=== PATIENT | female | born 1960 | race Caucasian/White ===

== ENCOUNTER 2017-08-05 19:31 | Inpatient (IN) | payer MEDICAID ==
[~2017-08-05] VITALS: Ht 157.5 cm; Wt 68.6 kg
[~2017-08-05 19:31] MED LIST: VIBERZI PO
[2017-08-05 19:33] VITALS: BP 116/73
--- NOTE | 2017-08-05 20:29 | Emergency Room Report ---
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 altered mental status x 24 days. active hep C, urinated x 1 for 24 hours, having abnormal vaginal? 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 N Clinical Suspician of Infection? N Mental Status: 2 - Mildly Altered Sepsis Risk:Low Sepsis Risk Have you (or family members/close friends) recently traveled outside the [place]? N If Yes, where/when: Have you had exposure to infectious disease within the past month? N TB? Other? Specify: Source patient, RN notes reviewed, family, EMS, old records Exam Limitations clinical condition Comment pt over the last 3 days with dec and change in mental status with no fever or trauma and does use etoh last drank yesterday and has copd and occ pain meds from pcp- - has hep c - no blood thinners Cardiac Chest Pain Chest pain indicative of cardiac No Timing/Duration this evening Severity moderate ALLERGIES Coded Allergies: MDX - Lisinopril (Lisinopril) (Severe, THROAT SWELLING 07/29/10) Converted from Ingredient Allergy: Lisinopril History Medical History General Angina: No NV: Yes Hypertension? No Hyperlipidemia? No COPD? Yes Asthma? No CVA? No Seizures? No Diabetes? No GB Disease: No MRSA? No TB? No Cancer? 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 Respiratory cough, shortness of breath, denies wheezing Cardiovascular denies chest pain, denies palpitations, denies syncope Gastrointestinal denies abdominal pain, denies diarrhea, denies vomiting Genitourinary denies: dysuria, frequency, hesitancy. Musculoskeletal denies back pain, denies joint pain, denies joint swelling, denies neck pain Skin denies rash Psychiatric/Neurological see HPI, denies headache, denies seizure, other Physical Exam Vital Signs Vital Signs Date Time Temp Pulse Resp B/P Pulse O2 O2 Flow FiO2 Ox Delivery Rate 08/06 0011 95 20 120/78 91 3 08/05 2340 99.9 95 19 122/75 90 3 08/05 2340 95 20 122/75 90 08/05 2226 40 08/05 2148 99.9 87 16 167/105 91 2 08/05 2128 87 16 167/105 91 2 08/05 1933 98.9 94 12 116/73 78 - WBC >12,000 or <4,000 or 10% bands? 2 or more SIRS Criteria Met? B/P:122/75 MAP:87 Creatinine >2.0? UA output<0.5ml/kg/hr for 2 hrs? Platelet count >100,000? Lactate >2.0mmol/1? INR >1.2 or PTT > than 60 sec? Evidence of Organ Dysfunction? Provider documented clinical suspician of infection? N Sepsis Criteria Count: 1 Sepsis Risk: Low Sepsis Risk General Appearance no apparent distress Eye Exam - bilateral eye PERRL, bilateral eye EOMI Comment no def icterus Ear, Nose, Throat normal ENT inspection, dry mm Neck supple Respiratory Status No: respiratory distress. Lung Sounds bilateral: decreased breath sounds. Cardiovascular regular rate/rhythm, systolic murmur Peripheral Pulses Pulses normal No Gastrointestinal soft Extremities normal inspection Strength 4 Upper Ext (L), 4 Upper Ext (R), 4 Lower Ext (L), 4 Lower Ext (R) Neurologic obtunded but no focal def and no posturing Glascow Coma Scale Glascow Coma Scale Response Value EYE response: 4 Spontaneously 4 MOTOR response: 6 OBEYS 6 VERBAL response: 4 Disoriented & Converses 4 Total 14 Reflexes Reflexes normal No Mental status normal mood/affect Skin intact Medical Decision Making LABS/Meds/Orders Pt receiving controlled substance in ED? No Results/Orders Laboratory Tests 08/06/17 0015: ABG pH 7.22 *L, ABG pCO2 (Temp Corrct 69.3 H, ABG pO2 (Temp Correct 58.9 L, ABG HCO3 27.9 H, ABG Total CO2 30.0 H, ABG O2 Sat (Calculated) 88.4 L, ABG Base Excess 0.2, Vincent Test PATIENT UNABLE 08/05/170: ABG pH 7.20 *L, ABG pCO2 (Temp Corrct 71.2 H, ABG pO2 (Temp Correct 60.5 L, ABG HCO3 27.0 H, ABG Total CO2 29.1 H, ABG O2 Sat (Calculated) 88.7 L, ABG Base Excess -1.2, Vincent Test PATIENT UNABLE 08/05/170: Opiates Screen POSITIVE H, Urine Methadone Screen NEGATIVE, Barbiturates NEGATIVE, Phencyclidine Screen NEGATIVE, Amphetamines Screen NEGATIVE, Benzodiazepines Screen NEGATIVE, Cocaine Screen NEGATIVE, Marijuana (THC) Screen NEGATIVE, Urine Color RITESH, Urine Appearance CLEAR, Urine pH 6.0, Ur Specific [place] 1.020, Urine Protein NEGATIVE, Urine Ketones NEGATIVE, Urine Blood NEGATIVE, Urine Nitrate NEGATIVE, Urine Bilirubin NEGATIVE, Urine Urobilinogen 0.2, Ur Leukocyte Esterase NEGATIVE, Urine RBC NONE, Urine WBC NONE, Ur Squamous Epith Cells NONE, Urine Bacteria TRACE, Hyaline Casts OCC, Urine Glucose NEGATIVE 08/05/172119: Sodium 135 L, Potassium 3.9, Chloride 100, Carbon Dioxide 29, BUN 21 H, Creatinine 1.1 H, Estimated Creat Clear 62, Estimated GFR (MDRD) 52 L, Glucose 107 H, Calcium 8.5, Total Bilirubin 0.7, AST 37, ALT 30, Alkaline Phosphatase 146 H, Creatine Kinase 507 H, CK-MB (CK-2) Rel Index 3.5, CK and CKMB Interp 17.5 *H, Troponin I < 0.02, Total Protein 7.3, Albumin 3.2 L, Globulin 4.1 H, Albumin/Globulin Ratio 0.8 L, WBC 9.8, RBC 3.54 L, Hgb 11.7 L, Hct 35.7 L, MCV 100.9 H, RDW 13.1, Plt Count 205, MPV 8.5, Gran % 80.2 H, Gran # 7.9 H, Lymphocytes % 9.3 L, Monocytes % 3.7, Eosinophils % 6.4, Basophils % 0.5, Lymphocytes # 0.9, Monocytes # 0.4, Eosinophils # 0.6 H, Basophils # 0.1, PUBS MCHC 32.8, MCH 33.1 H, Salicylates 7.4, Acetaminophen 0 L, Alcohols 0 08/05/17 2100: Lactic Acid 0.8 08/05/17 2100: Ammonia 30 Current Medication Orders Sig/Mitchell Start time Last Medication Dose Route Stop Time Status Admin Methylprednisolone 125 MG ONCE ONE 08/06 0015 DC Sodium Succinate IV 08/06 0016 Midazolam HCl 0 .STK-MED ONE 08/05 2350 DC .ROUTE Naloxone HCl 2 MG ONCE ONE 08/05 2215 DC IV 08/05 2216 Orders Procedure Date/time Status DIET-NOTHING BY MOUTH 08/06 B Active ARTERIAL BLOOD GAS REQUEST 08/06 0006 Active CHEST-PORTABLE 08/05 2358 Active OXYGEN PER HOUR 08/05 2223 Complete BIPAP-INITIAL SETUP 08/[address] CHEST SCAN REQ 08/05 2223 Active URINARY CATHETER INSERT 08/[address] HEAD W/O CONTRAST 08/05 2041 Active AMMONIA 08/[address] SCAN REQ 08/05 2031 Complete CHEST-AP VIEW ONLY 08/05 2031 Active 12 LEAD EKG-EDDIE (INITIAL) 08/05 2030 Active ELECTROCARDIOGRAM REQUEST 08/05 2030 Active ARTERIAL BLOOD GAS REQUEST 08/05 2030 Active CULTURE, BLOOD 08/05 2030 Active URINALYSIS/COMPLETE 08/05 2030 Complete SALICYLATE 08/05 2030 Complete LACTIC ACID 08/05 2030 Complete DRUG ABUSE SCREEN (TRIAGE) 08/05 2030 Complete COMPLETE METABOLIC PANEL 08/05 2030 Complete CBC WITH AUTO DIFF 08/05 2030 Complete CARDIAC ENZYMES 08/05 2030 Complete ALCOHOL 08/05 2030 Complete Acetaminophen 08/05 2030 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 ST/Twave chgs XRAY/CT/US XRAY/CT/US 1 XRAY chest XR interpretation by reviewed by me Xray Results abnormal (rt fullness) XRAY/CT/US [address] interpretation by discussed w/radiologist Time results known: 2312 CT Results normal/NAD XRAY/CT/US 3 XRAY chest XR interpretation by reviewed by me Xray Results normal/NAD (central line) Procedures Central Line Central Line Placement Risks/benefits discussed with pt/guardian? Yes (to family) Anesthesia Lidocaine 1% ml- CL Placement Rt femoral, Triple lumen, good venous return. No: confirmed with xray. Complications unable tp pass line /hematoma Departure Departure Time of Disposition 0004 Disposition Still a Patient Clinical Impression Primary Impression: COPD exacerbation Secondary Impressions: CAP (community acquired pneumonia) Qualifiers: Laterality: right Lung location: lower lobe of lung Qualified Code: J18.1 - Lobar pneumonia, unspecified organism Respiratory failure Qualifiers: Chronicity: acute Respiratory failure complication: hypoxia and hypercapnia Qualified Code: J96.01 - Acute respiratory failure with hypoxia Condition STABLE Referrals Ammon Durán MD discussed with dr durán ED Critical Care Critical Care Yes Time spent 75-104 min Vital system(s) involved: Respiratory Failure I was present at bedside for Coordinating pt's care, Interpreting EKGs/Strips , Reviewing lab results, Reviewing old records, Discussing pt condition, For re- examinations, Examining radiographs at 0024
[2017-08-05 21:28] LABS: HEMOGLOBIN 11.7 g/dL (12.2-16.2); LYMPH # 0.9 K/mm3 (0.7-4.5); LYMPH % 9.3 % (10-50.0)
[2017-08-05 21:43] LABS: URINE BILIRUBIN - DIPSTICK NEGATIVE (NEG); URINE BLOOD NEGATIVE (NEG)
[2017-08-05 21:44] LABS: ARTERIAL PO2 60.5 MMHG (80-100); ARTERIAL TCO2 29.1 MMOL/L (23-27)
[2017-08-05 21:45] LABS: ALLEN'S TEST PATIENT UNABLE; ARTERIAL ABE -1.2 MMOL/L (-2.4-+2.3)
[2017-08-05 21:54] LABS: BUN 21 mg/dL (7-18)
[2017-08-05 21:55] LABS: GFR (ESTIMATED) 52 ML/MIN (59-)
[2017-08-05 21:57] LABS: AMPHETAMINES/METAMPHETAMINES NEGATIVE ng/mL (<1000)
[2017-08-06] VITALS (7 sets, daily range): BP systolic 115–137; BP diastolic 74–88
--- NOTE | 2017-08-06 00:16 | Procedure Note ---
Bedside procedures Central Line Date of procedure: 08/06/17 Time of procedure: 11 Central Line Placement: Risks/benefits discussed with pt/guardian? Yes Anesthesia Lidocaine 1% ml- CL Placement [place], Rt subclavian, Prepped and draped, Triple lumen, good venous return, confirmed with xray, sutured, Sterile Dressing Applied. Additional information: Patient was positioned in Trendelenburg position. RIGHT neck and chest were prepped and draped in standard surgical fashion. APProximally 5 mL of 1 percent Xylocaine without epinephrine was infiltrated inferior to the RIGHT clavicle. Needle was inserted manipulating the needle inferior to the clavicle with good return of venous flow. Guidewire was inserted. Small incision was made the insertion site. Subcutaneous tissues were dilated. 7 Armenian triple-lumen catheter was inserted over the guidewire using Seldinger technique and secured to the skin with suture at approximately the 15 cm zack. All ports aspirated and flushed without difficulty. Clean dry sterile dressing was applied. Chest x-ray revealed good position of the catheter without pneumothorax. at 0015
[2017-08-06 00:19] LABS: ARTERIAL ABE 0.2 MMOL/L (-2.4-+2.3); ARTERIAL PO2 58.9 MMHG (80-100)
[2017-08-06 00:20] LABS: ALLEN'S TEST PATIENT UNABLE
--- NOTE | 2017-08-06 04:58 | RADIOLOGY REPORT PS360 ---
CHEST-AP VIEW ONLY HISTORY: Shortness of breath sob ORDERING PHYSICIAN: Ammon Daugherty MD PATIENT AGE: 56 years COMPARISON: None available FINDINGS: The heart size is unremarkable. Study is somewhat underpenetrated. There is mild pulmonary venous congestion and there is increased density in the right perihilar region. No obvious effusion. No acute bony anomalies. IMPRESSION: 1. Mild CHF. 2. Right perihilar infiltrate/pneumonia..
--- NOTE | 2017-08-06 05:00 | RADIOLOGY REPORT PS360 ---
CHEST-PORTABLE HISTORY: Follow-up central line placement central line ORDERING PHYSICIAN: Ammon Daugherty MD PATIENT AGE: 56 years COMPARISON: 08/05/2017 FINDINGS: Pulmonary venous congestion has improved.. Consolidation is present in the right perihilar region consistent with pneumonia. One cannot exclude an underlying mass. Follow-up is recommended. This does not subside then CT may be needed for further evaluation.. Right subclavian central venous line has been inserted with the tip in the region superior vena cava. No evidence of pneumothorax.. IMPRESSION: 1. New right subclavian central venous line. 2. Consolidation in the right perihilar region unchanged consistent with pneumonia. Cannot exclude underlying mass. Follow-up recommended
--- NOTE | 2017-08-06 05:02 | RADIOLOGY REPORT PS360 ---
CT HEAD W/O CONTRAST HISTORY: Mental status change, altered level of consciousness, confusion MENTAL STATUS CHANGE ORDERING PHYSICIAN: Ammon Daugherty MD PATIENT AGE: 56 years COMPARISON: None TECHNIQUE: Axial images obtained without contrast. Brain and bone windows reviewed. FINDINGS: No midline shift, mass effect, intracranial hemorrhage, hydrocephalus, or extra-axial fluid collection is evident. The calvarium has an unremarkable appearance. Sclerosis of the right mastoid air cells with some opacification on the right. The visualized paranasal sinuses are unremarkable. IMPRESSION: 1. No acute intracranial findings. 2. Chronic right mastoiditis.
[2017-08-06 06:04] LABS: ALLEN'S TEST PATIENT UNABLE; ARTERIAL ABE -0.1 MMOL/L (-2.4-+2.3); ARTERIAL PO2 70.4 MMHG (80-100); ARTERIAL TCO2 29.7 MMOL/L (23-27)
--- NOTE | 2017-08-06 07:13 | PHARMACY CLINIC NOTE ---
Patient Demographics Patient Demographics Admission date: 08/06/17 Date: 08/06/17 Time: 0713 Allergies Coded Allergies: lisinopril (Severe, 08/06/17) HEIGHT- FT: 5 IN: 2.00 K.607 VTE General Information Labs: Laboratory Tests 08/05 2120 Hematology Hgb (12.2 - 16.2 g/dL) 11.7 L Hct (37.0 - 47.0 %) 35.7 L Plt Count (142 - 424 K/mm3) 205 Disclaimer The following section includes nursing documentation that has been pulled in for pharmacy review. Patient's VTE score: 2 Patient's VTE Risk: VERY LOW RISK Clinical trial participant? No VTE prophylaxis NQF [id number] VTE prophylaxis ordered? Yes Type of prophylaxis/treatment: LEIGH at 0713
[2017-08-06 07:33] LABS: HEMOGLOBIN 10.8 g/dL (12.2-16.2); LYMPH # 0.3 K/mm3 (0.7-4.5); LYMPH % 4.6 % (10-50.0)
[2017-08-06 07:45] LABS: BUN 16 mg/dL (7-18)
[2017-08-06 07:48] LABS: GFR (ESTIMATED) 74 ML/MIN (59-)
[2017-08-06 08:46] LABS: ARTERIAL ABE -6.1 MMOL/L (-2.4-+2.3); ARTERIAL PO2 66.6 MMHG (80-100); ARTERIAL TCO2 22.6 MMOL/L (23-27)
[2017-08-06 08:47] LABS: ALLEN'S TEST PATIENT UNABLE; OXYGEN 32
--- NOTE | 2017-08-06 08:50 | HISTORY AND PHYSICAL REPORT ---
History and Physical ([facility]) Date of admission: 08/06/17 Chief complaint: AMS History: History of Present Illness: Patient is unable to give any information today. I spoke with a member of patient's household, Trista Kelley, ([phone]) who stated that Ms Dent was in her usual state of health until she ran out of her Cymbalta 07/03/17. She then began to have tremors and difficulty with walking along with change in her mental status. Trista reports that patient has COPD, RA, IBS with diarrhea, Hepatitis C, and is a recoverd alcoholic. She does smoke 3 PPD. 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 At this point patient will sometimes answer yes and no to some questions and indicates no pain. She thinks she is at the Dr's office. She was restless and would not keep on BIPAP last night. She received ATivan after which she has been sleeping. She is too lethargic at this time to eat or drink anything. She is on O2 at 3 LPM and maintaining O2 sats. Past Medical History: Medical History: CAD? No Angina: No UT: No Hypertension? No Hyperlipidemia? No CHF? No DVT? No PE? No COPD? Yes Asthma? No Anemia? No GERD? Yes Gastric ulcers? No GI Bleed? No Hernia? No Thyroid Problems? No Hypothyroidism? No CVA? No Seizures? No Diabetes? No Renal Insuffiency? No UTI? Yes Stones? No BPH? No GB Disease: No Nephritic Syndrome? No Asplenia? No Hepatitis? Yes Sickle Cell Disease? No Arthritis? Yes Migraines? No Cataracts? No Glaucoma? No MRSA? No HIV? No TB? No Anxiety? No Depression? No Cancer? No More? Yes Additional hx: TUBIL LIGATION Hepatitis C IBS with diarrhea Additional medical history: History can not be verified Surgical history: Previous Surgery?Y TUBAL LIGATION Medications: Reported Medications Gabapentin 600 MG PO TID #180 TAB Albuterol Sulfate (Albuterol Sulfate 0.5 Ml) 3 ML IH Q4HP PRN WHEEZING #75 ML ERGOCALCIFEROL (VITAMIN D2) (Vitamin D2) 50,000 IUNITS PO WEEKLY #4 CAP Carbamazepine (Carbamazepine XR 200MG) 200 MG PO BID #60 TAB Trazodone Hcl (Trazodone HCl) 150 MG PO QHS #30 TAB Bifidobacterium Infantis (Align) 4 MG PO DAILY #28 CAP Dicyclomine Hcl (Dicyclomine Tab) 20 MG PO ACHS #120 TAB TERBINAFINE HCL (Terbinafine HCl) 250 MG PO DAILY #30 TAB Methocarbamol 500 MG PO TID #90 TAB Loperamide Hcl (Loperamide) 4 MG PO TIDP PRN DIARRHEA #180 CAP DULOXETINE HCL (Duloxetine Hydrochloride) 30 MG PO BID #60 CAP Meloxicam (Meloxicam 15MG) 15 MG PO DAILY #30 TAB [VIBERZI] 100 MG PO BID #60 TAB Allergies: Coded Allergies: lisinopril (Severe, 08/06/17) Family History: Family history: Negative for: unknown. Social History: Smoking Hx Tobacco: Yes Smoker: Current Every Day Smoker Type: Cigarettes Packs/day: 1 1/2 - 2 Packs Are you exposed to second hand No Alcohol: Alcohol: No When was your last drink 12-24 Hours Ago Comment recovered alcoholic but took 3 drinks last week Hx of Drug Use: Drug Use? No Review of Systems: Patient unresponsive? No Constitutional Positive for: lethargy. Cardiovascular No: chest pain, edema. Respiratory Positive for: shortness of air, non-productive. GI Positive for: GERD, diarrhea. No: constipation, vomitting. (female) No: frequency. Neurological Positive for: change in LOC, confusion, gait problem. No: seizure. Physical Exam: Vital signs: 1ST Vital Signs Result Date Time Pulse Ox 78 08/05 1933 B/P 116/73 08/05 1933 Temp 98.9 08/05 1933 Pulse 94 08/05 1933 Resp 12 08/05 1933 O2 Flow Rate 2 08/05 2128 O2 Delivery OXYGEN 08/06 0130 Exam: General appearance: lethargic, responsive, does follow some commands Eyes: anicteric ENT: dry mucous membranes Neck: normal inspection, non-tender, lymphadenopathy (absent), thyroid ( normal) Cardiovascular: regular rate & rhythm, deep line in righ SC Respiratory: bilateral coarse rhonchi with some wheeze; coughs with deep inspiration ABD: non-distended, soft, bowel sounds present Genitourinary: catheter in place Extremities: moves all, no peripheral edema Neuro: other, responds with increased stimulation; restless at times Lab data: Labs: Laboratory Tests 08/06/17 0715: Sodium 137, Potassium 4.4, Chloride 103, Carbon Dioxide 26, BUN 16, Creatinine 0.8, Estimated Creat Clear 86, Estimated GFR (MDRD) 74, Glucose 118 H, Calcium 8.5, Troponin I < 0.02, WBC 6.8, RBC 3.20 L, Hgb 10.8 L, Hct 32.6 L, MCV 101.7 H, RDW 13.0, Plt Count 224, MPV 7.9, Gran % 92.3 H, Gran # 6.3, Lymphocytes % 4.6 L, Monocytes % 2.1, Eosinophils % 0.7, Basophils % 0.2, Lymphocytes # 0.3 L, Monocytes # 0.1, Eosinophils # 0.1, Basophils # 0.0, PUBS MCHC 33.1, MCH 33.7 H 08/06/17 0550: ABG pH 7.22 *L, ABG pCO2 (Temp Corrct 68.6 H, ABG pO2 (Temp Correct 70.4 L, ABG HCO3 27.6 H, ABG Total CO2 29.7 H, ABG O2 Sat (Calculated) 92.5, ABG Base Excess -0.1, Vincent Test PATIENT UNABLE, Blood Gas Comments RIGHT RADIAL 08/06/17 0015: ABG pH 7.22 *L, ABG pCO2 (Temp Corrct 69.3 H, ABG pO2 (Temp Correct 58.9 L, ABG HCO3 27.9 H, ABG Total CO2 30.0 H, ABG O2 Sat (Calculated) 88.4 L, ABG Base Excess 0.2, Vincent Test PATIENT UNABLE 08/05/17 2140: ABG pH 7.20 *L, ABG pCO2 (Temp Corrct 71.2 H, ABG pO2 (Temp Correct 60.5 L, ABG HCO3 27.0 H, ABG Total CO2 29.1 H, ABG O2 Sat (Calculated) 88.7 L, ABG Base Excess -1.2, Vicnent Test PATIENT UNABLE 08/05/17 2130: Opiates Screen POSITIVE H, Urine Methadone Screen NEGATIVE, Barbiturates NEGATIVE, Phencyclidine Screen NEGATIVE, Amphetamines Screen NEGATIVE, Benzodiazepines Screen NEGATIVE, Cocaine Screen NEGATIVE, Marijuana (THC) Screen NEGATIVE, Urine Color RITESH, Urine Appearance CLEAR, Urine pH 6.0, Ur Specific [place] 1.020, Urine Protein NEGATIVE, Urine Ketones NEGATIVE, Urine Blood NEGATIVE, Urine Nitrate NEGATIVE, Urine Bilirubin NEGATIVE, Urine Urobilinogen 0.2, Ur Leukocyte Esterase NEGATIVE, Urine RBC NONE, Urine WBC NONE, Ur Squamous Epith Cells NONE, Urine Bacteria TRACE, Hyaline Casts OCC, Urine Glucose NEGATIVE 08/05/170: Sodium 135 L, Potassium 3.9, Chloride 100, Carbon Dioxide 29, BUN 21 H, Creatinine 1.1 H, Estimated Creat Clear 62, Estimated GFR (MDRD) 52 L, Glucose 107 H, Calcium 8.5, Total Bilirubin 0.7, AST 37, ALT 30, Alkaline Phosphatase 146 H, Creatine Kinase 507 H, CK-MB (CK-2) Rel Index 3.5, CK and CKMB Interp 17.5 *H, Troponin I < 0.02, Total Protein 7.3, Albumin 3.2 L, Globulin 4.1 H, Albumin/Globulin Ratio 0.8 L, WBC 9.8, RBC 3.54 L, Hgb 11.7 L, Hct 35.7 L, MCV 100.9 H, RDW 13.1, Plt Count 205, MPV 8.5, Gran % 80.2 H, Gran # 7.9 H, Lymphocytes % 9.3 L, Monocytes % 3.7, Eosinophils % 6.4, Basophils % 0.5, Lymphocytes # 0.9, Monocytes # 0.4, Eosinophils # 0.6 H, Basophils # 0.1, PUBS MCHC 32.8, MCH 33.1 H, Salicylates 7.4, Acetaminophen 0 L, Alcohols 0 08/05/17 2100: Lactic Acid 0.8 08/05/17 2100: Ammonia 30 Microbiology 08/05 2100 BLOOD: Anaerobic Blood Culture - RECD 08/05 2100 BLOOD: Aerobic Blood Culture - RECD 08/05 2100 BLOOD: Anaerobic Blood Culture - RECD 08/05 2100 BLOOD: Aerobic Blood Culture - RECD Radiology results: Results: CXR 08/05/17 IMPRESSION: 1. Mild CHF. 2. Right perihilar infiltrate/pneumonia.. CT of head IMPRESSION: 1. No acute intracranial findings. 2. Chronic right mastoiditis. repeat CXR 08/05/17 IMPRESSION: 1. New right subclavian central venous line. 2. Consolidation in the right perihilar region unchanged consistent with pneumonia. Cannot exclude underlying mass. Follow-up recommended Diagnosis(es): 1. Respiratory failure Status: Acute 2. CAP (community acquired pneumonia) Status: Acute 3. COPD exacerbation Status: Chronic 4. IBS (irritable bowel syndrome) Status: Chronic 5. COPD (chronic obstructive pulmonary disease) Status: Chronic 6. Hepatitis C Status: Chronic Plan: ABX, maintain O2 sats; will repeat ABG's; duonebs (Trista Julian APRN) Date of admission: 08/06/17 Diagnosis(es): 1. Respiratory failure Status: Acute 2. CAP (community acquired pneumonia) Status: Acute 3. COPD exacerbation Status: Chronic 4. IBS (irritable bowel syndrome) Status: Chronic 5. COPD (chronic obstructive pulmonary disease) Status: Chronic 6. Hepatitis C Status: Chronic Plan: Patient seen and examined this AM. SHe does not open her eyes and only mumbles incoherently. UDS is positive for opiates so is likely withdrawing from something. Sats are good as long as she keeps O2 on. Will repeat ABGs. Chest CT pending. (Ammon Daugherty MD) at 1706 at 1722
--- NOTE | 2017-08-06 09:53 | CARDIOVASCULAR REPORT ---
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 Femoral stick attempted hematoma present in right groin IMPRESSIONS 1. No evidence of pseudoaneurysm 2. No evidence of arteriovenous fistula Noninvasive vascular study. Tables: (Report amended ) Electronically signed by: Vincent Loving [id number]
[2017-08-06 10:23] LABS: NEUTROPHILS 94 % (42-76)
--- NOTE | 2017-08-06 11:25 | RADIOLOGY REPORT PS360 ---
CT CHEST W/O CONTRAST HISTORY: Right hilar mass versus infiltrate, PNEUMONIA ORDERING PHYSICIAN: Ammon Daugherty MD PATIENT AGE: 56 years TECHNIQUE: Axial images obtained without contrast COMPARISON: Radiograph 08/05/2017 FINDINGS there is a right subclavian central venous line present with the tip in the region superior vena cava. There are coronary artery calcifications. No mediastinal or hilar mass is evident Bilateral scattered areas of pneumonia are noted most extensive in the right perihilar region representing the radiographic abnormality with associated bronchial thickening. No pulmonary mass apparent. Trace right effusion. Small pulmonary lesions could be obscured by the underlying pneumonia. No acute bony anomalies. Mild degenerative changes thoracic spine. Upper abdominal images are unremarkable. IMPRESSION: 1. Bilateral pneumonia. No obvious pulmonary mass. 2. Coronary artery disease
[2017-08-06] MEDS ORDERED: DULOXETINE HYDR30 MG PO (13:40)
[2017-08-06] MEDS ORDERED: GABAPENTIN300 M1 PO (13:41)
[2017-08-06] MEDS ORDERED: ALBUTEROL SULF0.5 ML IH (13:42)
[2017-08-06] MEDS ORDERED: MELOXICAM15 MG PO (13:44)
[2017-08-06] MEDS ORDERED: CARBAMAZEPINE200 M4 PO (13:45)
[2017-08-06] MEDS ORDERED: VITAMIN D50000 I1 PO (13:45)
[2017-08-06] MEDS ORDERED: TRAZODONE150 MG PO (13:45)
[2017-08-06] MEDS ORDERED: ALIGN4 MG PO (13:46)
[2017-08-06] MEDS ORDERED: DICYCLOMINE HCL20 MG PO (13:47)
[2017-08-06] MEDS ORDERED: METHOCARBAMOL500 M1 PO (13:48)
[2017-08-06] MEDS ORDERED: TERBINAFINE250 MG PO (13:48)
[2017-08-06] MEDS ORDERED: IMODIUM 2MG. CAP2 MG PO (13:50)
--- NOTE | 2017-08-06 18:17 | ACUTE CARE PROGRESS NOTE (QUA) ---
Progress Notes Subjective Date 08/06/17 Time 181 Note FOLLOW UP NOTE: SHe has been restless through the day and recieved 2 doses of Haldol. When awake, she is pulling at Hameed, IVs and is hallucinating. Still unable to get any history from patient. No family in to visit today Objective Findings Last VS-Temp:98.0 B/P: 125/88 Pulse:92 Resp:16 SaO2:93 OXYGEN Last weight lbs: 151 oz: 4 K.607 Method: Bed Scales Exam General appearance: sleeping after Haldol Cardiovascular: regular rate & rhythm Respiratory: coarse BS and rhonchi Reviewed: CHEST CT showing bilateral pneumonia most prominent in right perihilum Assessment/Plan Problem List 1. Respiratory failure Status: Acute 2. CAP (community acquired pneumonia) Status: Acute 3. COPD exacerbation Status: Chronic 4. IBS (irritable bowel syndrome) Status: Chronic 5. COPD (chronic obstructive pulmonary disease) Status: Chronic 6. Hepatitis C Status: Chronic Patient condition Guarded Plan: Will continue antibx, steroids. Likely withdrawing from opiates. WIll continue prn Haldol to keep her calm and compliant with treatment. This inpt stay is expected to cross 2 MNs from start of care Yes at 1818
[2017-08-07] VITALS (7 sets, daily range): BP systolic 115–181; BP diastolic 63–96
[2017-08-07 07:06] LABS: LYMPH # 0.5 K/mm3 (0.7-4.5); LYMPH % 10.6 % (10-50.0)
[2017-08-07 07:38] LABS: HEMOGLOBIN 9.4 g/dL (12.2-16.2)
--- NOTE | 2017-08-07 09:30 | ACUTE CARE PROGRESS NOTE (QUA) ---
Progress Notes Subjective Date 08/07/17 Time 0922 Note Acute delerium persists but staff notes seems a bit more lucid at times. Still easily agitated and requiring Haldol and Ativan. Respiratory status has been stable. VSS. Objective Findings Laboratory Tests 08/07/17 0630: Sodium 137, Potassium 4.1, Chloride 105, Carbon Dioxide 28, BUN 16, Creatinine 0.6, Estimated Creat Clear 115, Estimated GFR (MDRD) 104, Glucose 125 H, Calcium 8.3 L, Total Bilirubin 0.2, AST 15, ALT 22, Alkaline Phosphatase 101, Total Protein 6.0 L, Albumin 2.4 L, Globulin 3.6 H, Albumin/Globulin Ratio 0.7 L, WBC 4.7 L, RBC 2.82 L, Hgb 9.4 L, Hct 28.4 L, MCV 100.7 H, RDW 13.1 , Plt Count 222, MPV 7.7, Gran % 83.4 H, Gran # 3.9, Lymphocytes % 10.6, Monocytes % 5.0, Eosinophils % 0.8, Basophils % 0.2, Lymphocytes # 0.5 L, Monocytes # 0.2, Eosinophils # 0.0, Basophils # 0.0, PUBS MCHC 33.1, MCH 33.3 H Last VS-Temp:98.3 B/P: 158/93 Pulse:82 Resp:16 SaO2:95 OXYGEN Last weight lbs: 151 oz: 4 K.607 Method: Bed Scales Exam General appearance: restless, arouses to name and attempts to answer questions Eyes: anicteric ENT: mucous membranes moist Cardiovascular: regular rate & rhythm Respiratory: coarse BS with decreased rhonchi and no wheezes. ABD: non-distended, normal bowel sounds, soft, no apparent tenderness. Extremities: hematoma and bruising in right groin. Assessment/Plan Problem List 1. Respiratory failure Status: Acute 2. CAP (community acquired pneumonia) Status: Acute 3. COPD exacerbation Status: Chronic 4. IBS (irritable bowel syndrome) Status: Chronic 5. COPD (chronic obstructive pulmonary disease) Status: Chronic 6. Hepatitis C Status: Chronic 7. Altered mental status 8. Acute delirium 9. Depression Patient condition Guarded Plan: SHe seems marginally better. Will d/c Ativan and wean Haldol. Repeat CXR and ABGs. This inpt stay is expected to cross 2 MNs from start of care Yes at 0930
[2017-08-07 10:03] LABS: ARTERIAL ABE 0.7 MMOL/L (-2.4-+2.3); ARTERIAL PO2 70.9 MMHG (80-100)
[2017-08-07 10:04] LABS: ALLEN'S TEST PATIENT UNABLE; OXYGEN 2LPM - 28%
--- NOTE | 2017-08-07 14:15 | RADIOLOGY REPORT PS360 ---
CHEST-PORTABLE HISTORY: Follow-up pneumonia pneumonia ORDERING PHYSICIAN: Ammon Daugherty MD PATIENT AGE: 56 years COMPARISON: None 1916 FINDINGS: Consolidation once again noted in the right mid and lower lung zone consistent with right lower lobe pneumonia. This is slightly improved in the right perihilar region but is slightly worse in the right lung base. The remaining lungs are clear. Unremarkable heart size. Right subclavian central venous line remains in place. IMPRESSION: Mixed response with improvement in the right perihilar infiltrate but worsening consolidation in the right lower lobe
[2017-08-08 04:20] VITALS: BP 191/115
[2017-08-08 07:12] LABS: LYMPH # 0.7 K/mm3 (0.7-4.5); LYMPH % 8.5 % (10-50.0)
[2017-08-08 07:29] LABS: HEMOGLOBIN 11.7 g/dL (12.2-16.2)
[2017-08-08 08:05] VITALS: BP 168/89
[2017-08-08 08:27] VITALS: BP 168/89
--- NOTE | 2017-08-08 08:44 | ACUTE CARE PROGRESS NOTE (QUA) ---
Progress Notes Subjective Date 08/08/17 Time 0730 Note Pt arouses to voice, able to answer questions appropriately. She denies any pain , still with some SOB and congested cough. Objective Findings Laboratory Tests 08/08/17 0655: Sodium 137, Potassium 3.5, Chloride 100, Carbon Dioxide 28, BUN 11, Creatinine 0.6, Estimated Creat Clear 115, Estimated GFR (MDRD) 104, Glucose 116 H, Calcium 8.8, Total Bilirubin 0.4, AST 36, ALT 45, Alkaline Phosphatase 114, Total Protein 7.2, Albumin 3.0 L, Globulin 4.2 H, Albumin/Globulin Ratio 0.7 L, WBC 8.5, RBC 3.43 L, Hgb 11.7 L, Hct 33.5 L, MCV 97.8, RDW 13.3, Plt Count 298, MPV 7.5, Gran % 84.2 H, Gran # 7.1, Lymphocytes % 8.5 L, Monocytes % 4.2, Eosinophils % 2.9, Basophils % 0.2, Lymphocytes # 0.7, Monocytes # 0.4, Eosinophils # 0.3, Basophils # 0.0, PUBS MCHC 34.5, MCH 33.7 H 08/07/17 0945: ABG pH 7.39, ABG pCO2 (Temp Corrct 43.8, ABG pO2 (Temp Correct 70.9 L, ABG HCO3 25.7, ABG Total CO2 27.0, ABG O2 Sat (Calculated) 94, ABG Base Excess 0.7, Vincent Test PATIENT UNABLE, Blood Gas Comments LEFT RADIAL Vital Signs Date Time Temp Pulse Resp B/P Pulse O2 O2 Flow FiO2 Ox Delivery Rate 08/08 0827 97.8 70 22 168/89 94 08/08 0805 97.8 70 22 168/89 94 ROOM AIR 08/08 0653 22 08/08 0617 95 ROOM AIR 08/08 0420 98.4 80 20 191/115 95 ROOM AIR 08/07 2358 98.4 99 20 171/96 96 ROOM AIR 08/07 2315 3 08/07 2315 94 ROOM AIR 08/07 2043 97.9 92 18 144/91 93 08/07 1953 3 08/07 1953 97.9 92 18 144/91 93 ROOM AIR 08/07 1850 3 08/07 1750 3 08/07 1750 88 ROOM AIR 08/07 1724 3 08/07 1600 98.3 93 22 181/96 88 ROOM AIR 08/07 1433 3 08/07 1247 3 08/07 1200 97.4 96 20 141/86 97 OXYGEN 08/07 1041 3 Last VS-Temp:97.8 B/P:168/89 Pulse:70 Resp:22 SaO2:94 ROOM AIR Last weight lbs:151 oz:4 K.607 Method:Bed Scales 08/07/17 CXR: 1. Mixed response with improvement in the right perihilar infiltrate but worsening consolidation in the right lower lobe. Exam General appearance: alert, awake, no acute distress Cardiovascular: regular rate & rhythm, normal peripheral pulses Respiratory: coarse breath sounds and rhonchi bilaterally, diminished right base ABD: non-distended, no rebound, soft, no tenderness, no guarding, no organomegaly, no palpable mass, bowel sounds present Extremities: moves all, no peripheral edema, warm, no calf tenderness Neuro: alert, oriented (to person and place) Reviewed: medications, vital signs, lab results, radiology report, nursing notes Assessment/Plan Problem List 1. Respiratory failure Status: Acute 2. CAP (community acquired pneumonia) Status: Acute 3. COPD exacerbation Status: Chronic 4. IBS (irritable bowel syndrome) Status: Chronic 5. COPD (chronic obstructive pulmonary disease) Status: Chronic 6. Hepatitis C Status: Chronic 7. Altered mental status 8. Acute delirium 9. Depression Patient condition Improving Plan: Continue current care. Pt considering leaving AMA if she is able to find a ride. This inpt stay is expected to cross 2 MNs from start of care Yes (KALYAN LARA APRN) Subjective Date 08/08/17 Assessment/Plan Problem List 1. CAP (community acquired pneumonia) Status: Acute 2. Respiratory failure Status: Resolved 3. COPD exacerbation Status: Chronic 4. IBS (irritable bowel syndrome) Status: Chronic 5. COPD (chronic obstructive pulmonary disease) Status: Chronic 6. Hepatitis C Status: Chronic 7. Altered mental status Status: Resolved 8. Acute delirium Status: Resolved 9. Depression Status: Chronic Plan: Still had some agitation during the night but at this time she is alert, coherent and insisting on going home. Denies SOA of chest pain. Still has cough. Not eating much but states it is because she does not have adhesive for her dentures. Denies abdominal pain or nausea. Has had some diarrhea which she attributes to her IBS. She denies taking any ilicit drugs to account for her positive UDS. Clinically she is improved with resolution of he acidosis and hypoxia. WBC is normal and she is afebrile. Suspect her acute delerium was related to withdrawal from unknown opiate in addition to her acute pneumonia, respiratory failure and acidosis. Even though she is better, I advised she should stay for additional treatment and monitoring of her respiratory status. She still insists on going home and will sign AMA form. She is encouraged to f/ u with her primary PCP in 2-3 days (Ammon Daugherty MD) at 0843 at 1241
[2017-08-08 11:37] VITALS: BP 136/70
[2017-08-08 12:28] VITALS: BP 136/70
[2017-08-08] MEDS ORDERED: CEFDINIR 300MG300 MG PO (12:28)
--- NOTE | 2017-08-09 06:33 | DISCHARGE SUMMARY STANDARD ---
Discharge Summary (FCA2) Date of admission: 08/06/17 Date of discharge: 08/08/17 Problem List: 1. CAP (community acquired pneumonia) 2. Respiratory failure 3. COPD exacerbation 4. IBS (irritable bowel syndrome) 5. COPD (chronic obstructive pulmonary disease) 6. Hepatitis C 7. Altered mental status 8. Acute delirium 9. Depression History of present illness: Patient was unable to give any information on the day of admission and no family member was present on that day. A member of patient's household, Trista Kelley, ([phone]) was contacted who stated that Ms Dent was in her usual state of health until she ran out of her Cymbalta 07/03/17. She then began to have tremors and difficulty with walking along with change in her mental status. 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 She was brought to [facility] ER for evaluation and admitted with acute respiratory failure. Exam on admission: 1ST Vital Signs Result Date Time Pulse Ox 78 08/05 1933 B/P 116/73 08/05 1933 Temp 98.9 08/05 1933 Pulse 94 08/05 1933 Resp 12 08/05 1933 O2 Flow Rate 2 08/05 2128 O2 Delivery OXYGEN 08/06 0130 Exam: General appearance: lethargic, responsive, does follow some commands Eyes: anicteric ENT: dry mucous membranes Neck: normal inspection, non-tender, lymphadenopathy (absent), thyroid ( normal) Cardiovascular: regular rate & rhythm, deep line in righ SC Respiratory: bilateral coarse rhonchi with some wheeze; coughs with deep inspiration ABD: non-distended, soft, bowel sounds present Genitourinary: catheter in place Extremities: moves all, no peripheral edema Neuro: other, responds with increased stimulation; restless at times Hospital Course: On admission patient was started on ABX, steroids, and duonebs. She was initially on BIPAP but would not keep the mask on and was changed to nasal O2. She was restless and combative at times. She received Ativan after which she was lethargic. Her respiratory status did stabilize. See lab data. She became more lucid at times. Agitation and restlessness were controlled with Ativan and Haldol. The AM of 08/08/17 she was alert, coherent and insisting on going home. She denied SOA, chest pain, abdominal pain and nausea. She still had a cough. She did not eat much but stated this was because she did not have adhesive for her dentures. She had some diarrhea which she attributed to her IBS. She denied taking any illicit drugs to account for her positive UDS. Clinically she was improved with resolution of he acidosis and hypoxia. WBC was normal and she was afebrile. Her acute delirium was felt to be related to withdrawal from an unknown opiate in addition to her acute pneumonia, respiratory failure and acidosis. Even though she was better, advised that she stay for additional treatment and monitoring of her respiratory status. She still insisted on going home and agreed to sign AMA form. She was encouraged to f/u with her primary PCP in 2-3 days Laboratory data this visit: 08/06/17 0715: Sodium 137, Potassium 4.4, Chloride 103, Carbon Dioxide 26, BUN 16, Creatinine 0.8, Estimated Creat Clear 86, Estimated GFR (MDRD) 74, Glucose 118 H, Calcium 8.5, Troponin I < 0.02, WBC 6.8, RBC 3.20 L, Hgb 10.8 L, Hct 32.6 L, MCV 101.7 H, RDW 13.0, Plt Count 224, MPV 7.9, Gran % 92.3 H, Gran # 6.3, Lymphocytes % 4.6 L, Monocytes % 2.1, Eosinophils % 0.7, Basophils % 0.2, Lymphocytes # 0.3 L, Monocytes # 0.1, Eosinophils # 0.1, Basophils # 0.0, PUBS MCHC 33.1, MCH 33.7 H 08/06/17 0550: ABG pH 7.22 *L, ABG pCO2 (Temp Corrct 68.6 H, ABG pO2 (Temp Correct 70.4 L, ABG HCO3 27.6 H, ABG Total CO2 29.7 H, ABG O2 Sat (Calculated) 92.5, ABG Base Excess -0.1, Vincent Test PATIENT UNABLE, Blood Gas Comments RIGHT RADIAL 08/06/17 0015: ABG pH 7.22 *L, ABG pCO2 (Temp Corrct 69.3 H, ABG pO2 (Temp Correct 58.9 L, ABG HCO3 27.9 H, ABG Total CO2 30.0 H, ABG O2 Sat (Calculated) 88.4 L, ABG Base Excess 0.2, Vincent Test PATIENT UNABLE 08/05/170: ABG pH 7.20 *L, ABG pCO2 (Temp Corrct 71.2 H, ABG pO2 (Temp Correct 60.5 L, ABG HCO3 27.0 H, ABG Total CO2 29.1 H, ABG O2 Sat (Calculated) 88.7 L, ABG Base Excess -1.2, Vincent Test PATIENT UNABLE 08/05/172129: Opiates Screen POSITIVE H, Urine Methadone Screen NEGATIVE, Barbiturates NEGATIVE, Phencyclidine Screen NEGATIVE, Amphetamines Screen NEGATIVE, Benzodiazepines Screen NEGATIVE, Cocaine Screen NEGATIVE, Marijuana (THC) Screen NEGATIVE, Urine Color RITESH, Urine Appearance CLEAR, Urine pH 6.0, Ur Specific [place] 1.020, Urine Protein NEGATIVE, Urine Ketones NEGATIVE, Urine Blood NEGATIVE, Urine Nitrate NEGATIVE, Urine Bilirubin NEGATIVE, Urine Urobilinogen 0.2, Ur Leukocyte Esterase NEGATIVE, Urine RBC NONE, Urine WBC NONE, Ur Squamous Epith Cells NONE, Urine Bacteria TRACE, Hyaline Casts OCC, Urine Glucose NEGATIVE 08/05/172119: Sodium 135 L, Potassium 3.9, Chloride 100, Carbon Dioxide 29, BUN 21 H, Creatinine 1.1 H, Estimated Creat Clear 62, Estimated GFR (MDRD) 52 L, Glucose 107 H, Calcium 8.5, Total Bilirubin 0.7, AST 37, ALT 30, Alkaline Phosphatase 146 H, Creatine Kinase 507 H, CK-MB (CK-2) Rel Index 3.5, CK and CKMB Interp 17.5 *H, Troponin I < 0.02, Total Protein 7.3, Albumin 3.2 L, Globulin 4.1 H, Albumin/Globulin Ratio 0.8 L, WBC 9.8, RBC 3.54 L, Hgb 11.7 L, Hct 35.7 L, MCV 100.9 H, RDW 13.1, Plt Count 205, MPV 8.5, Gran % 80.2 H, Gran # 7.9 H, Lymphocytes % 9.3 L, Monocytes % 3.7, Eosinophils % 6.4, Basophils % 0.5, Lymphocytes # 0.9, Monocytes # 0.4, Eosinophils # 0.6 H, Basophils # 0.1, PUBS MCHC 32.8, MCH 33.1 H, Salicylates 7.4, Acetaminophen 0 L, Alcohols 0 08/05/17 2100: Lactic Acid 0.8 08/05/17 2100: Ammonia 30 08/07/17 0630: Sodium 137, Potassium 4.1, Chloride 105, Carbon Dioxide 28, BUN 16, Creatinine 0.6, Estimated Creat Clear 115, Estimated GFR (MDRD) 104, Glucose 125 H, Calcium 8.3 L, Total Bilirubin 0.2, AST 15, ALT 22, Alkaline Phosphatase 101, Total Protein 6.0 L, Albumin 2.4 L, Globulin 3.6 H, Albumin/Globulin Ratio 0.7 L, WBC 4.7 L, RBC 2.82 L, Hgb 9.4 L, Hct 28.4 L, MCV 100.7 H, RDW 13.1 , Plt Count 222, MPV 7.7, Gran % 83.4 H, Gran # 3.9, Lymphocytes % 10.6, Monocytes % 5.0, Eosinophils % 0.8, Basophils % 0.2, Lymphocytes # 0.5 L, Monocytes # 0.2, Eosinophils # 0.0, Basophils # 0.0, PUBS MCHC 33.1, MCH 33.3 H 08/08/17 0655: Sodium 137, Potassium 3.5, Chloride 100, Carbon Dioxide 28, BUN 11, Creatinine 0.6, Estimated Creat Clear 115, Estimated GFR (MDRD) 104, Glucose 116 H, Calcium 8.8, Total Bilirubin 0.4, AST 36, ALT 45, Alkaline Phosphatase 114, Total Protein 7.2, Albumin 3.0 L, Globulin 4.2 H, Albumin/Globulin Ratio 0.7 L, WBC 8.5, RBC 3.43 L, Hgb 11.7 L, Hct 33.5 L, MCV 97.8, RDW 13.3, Plt Count 298, MPV 7.5, Gran % 84.2 H, Gran # 7.1, Lymphocytes % 8.5 L, Monocytes % 4.2, Eosinophils % 2.9, Basophils % 0.2, Lymphocytes # 0.7, Monocytes # 0.4, Eosinophils # 0.3, Basophils # 0.0, PUBS MCHC 34.5, MCH 33.7 H 08/07/17 0945: ABG pH 7.39, ABG pCO2 (Temp Corrct 43.8, ABG pO2 (Temp Correct 70.9 L, ABG HCO3 25.7, ABG Total CO2 27.0, ABG O2 Sat (Calculated) 94, ABG Base Excess 0.7, Vincent Test PATIENT UNABLE, Blood Gas Comments LEFT RADIAL Imaging: CXR 08/05/17 IMPRESSION: 1. Mild CHF. 2. Right perihilar infiltrate/pneumonia.. CT of head IMPRESSION: 1. No acute intracranial findings. 2. Chronic right mastoiditis. repeat CXR 08/05/17 IMPRESSION: 1. New right subclavian central venous line. 2. Consolidation in the right perihilar region unchanged consistent with pneumonia. Cannot exclude underlying mass. Follow-up recommended 08/07/17 CXR: 1. Mixed response with improvement in the right perihilar infiltrate but worsening consolidation in the right lower lobe. Discharge medications: Continue taking these medications: DULOXETINE HCL (Duloxetine Hydrochloride) 30 MG CAPSULE.DR 30 MILLIGRAM ORAL TWICE A DAY Qty = 60 Gabapentin (Gabapentin) 300 MG CAPSULE 600 MILLIGRAM ORAL THREE TIMES A DAY Qty = 180 Albuterol Sulfate (Albuterol Sulfate 0.5 Ml) 2.5 MG/3 ML VIAL.NEB 3 MILLILITER INHALATION EVERY 4 HOURS NEEDED as needed for WHEEZING Qty = 75 Meloxicam (Meloxicam 15MG) 15 MG TABLET 15 MILLIGRAM ORAL DAILY Qty = 30 ERGOCALCIFEROL (VITAMIN D2) (Vitamin D2) 50,000 UNIT CAPSULE 50,000 INT. UNITS ORAL Q WEEK (168 HRS) Qty = 4 Carbamazepine (Carbamazepine XR 200MG) 200 MG TAB.ER.12H 200 MILLIGRAM ORAL TWICE A DAY Qty = 60 Trazodone Hcl (Trazodone HCl) 150 MG TABLET 150 MILLIGRAM ORAL AT BEDTIME NIGHTLY Qty = 30 Bifidobacterium Infantis (Align) 4 MG (1 BILLION CELL) CAPSULE 4 MILLIGRAM ORAL DAILY Qty = 28 Dicyclomine Hcl (Dicyclomine Tab) 20 MG TABLET 20 MILLIGRAM ORAL BEFORE MEALS AND AT BEDTIME Qty = 120 TERBINAFINE HCL (Terbinafine HCl) 250 MG TABLET 250 MILLIGRAM ORAL DAILY Qty = 30 Methocarbamol (Methocarbamol) 500 MG TABLET 500 MILLIGRAM ORAL THREE TIMES A DAY Qty = 90 Loperamide Hcl (Loperamide) 2 MG CAPSULE 4 MILLIGRAM ORAL THREE TIMES A DAY NEEDED as needed for DIARRHEA Qty = 180 [VIBERZI] 100 MG TAB 100 MILLIGRAM ORAL TWICE A DAY Qty = 60 Start taking the following new medications: CEFDINIR (Cefdinir) 300 MG CAPSULE 300 MILLIGRAM ORAL TWICE A DAY Qty = 14 No Refills Disposition: Patient left the hospital AMA. Her respiratory status had stabilized. Follow up: 2-[address] Vito Garcia Activity: Limited activity Diet: Regular Discharge to: HOME Agency needed? N at 0666
== END 2017-08-08 14:25 | disposition home or self-care (01) | DRG 189 ==
LOC: ER 19:31 → 2ND 08-06 00:22
PROVIDERS: Emergency Medicine; Family Medicine
PROC: 5A09457 Assistance with Respiratory Ventilation, 24-96 Consecutive Hours, Continuous Positive Airway Pressure (ICD-10-PCS; principal; 2017-08-06)
DX: J96.02 Acute respiratory failure with hypercapnia (principal); J18.9 Pneumonia, unspecified organism; J44.1 Chronic obstructive pulmonary disease with (acute) exacerbation; F11.23 Opioid dependence with withdrawal; J96.01 Acute respiratory failure with hypoxia; Z72.0 Tobacco use; K58.9 Irritable bowel syndrome, unspecified; R45.1 Restlessness and agitation; M06.9 Rheumatoid arthritis, unspecified; B19.20 Unspecified viral hepatitis C without hepatic coma; T40.2X5A Adverse effect of other opioids, initial encounter
CPT/HCPCS: C1751; J0456